=== PATIENT | male | born 1955 | race Caucasian/White ===

== ENCOUNTER 2019-12-05 11:43 | Inpatient (IN) | payer BC ==
[~2019-12-05] VITALS: Ht 167.6 cm; Wt 107.6 kg
[~2019-12-05 11:43] MED LIST: AGGRENOX 25 MG1 EACH PO; FISH OIL 1,001000 M2 PO; LANTUS100 UNIT/M SUBQ; NIACIN500 MG PO; NOVOLOG100 UNIT/1 SUBQ; SIMVASTATIN40 MG PO; TRILEPTAL150 MG PO
[2019-12-05 11:51] VITALS: BP 146/72
[2019-12-05] MEDS ORDERED: KLOR-CON 1010 MEQ PO (12:02)
[2019-12-05] MEDS ORDERED: SPIRONOLACTONE25 MG PO (12:02)
[2019-12-05] MEDS ORDERED: FARXIGA10 MG PO (12:03)
[2019-12-05] MEDS ORDERED: ELIQUIS5 MG PO (12:04)
[2019-12-05] MEDS ORDERED: METFORMIN HCL500 M3 PO (12:04)
[2019-12-05] MEDS ORDERED: CLOPIDOGREL75 MG PO (12:04)
[2019-12-05] MEDS ORDERED: FENOFIBRATE150 MG PO (12:05)
[2019-12-05] MEDS ORDERED: TOPROL XL25 MG PO (12:05)
[2019-12-05] MEDS ORDERED: PROTONIX40 M1 PO (12:06)
[2019-12-05] MEDS ORDERED: FUROSEMIDE 20 M20 M1 PO (12:06)
[2019-12-05] MEDS ORDERED: OZEMPIC0.25 MG/0. SUBQ (12:07)
[2019-12-05] MEDS ORDERED: NIACIN 500 MG500 M1 PO (12:07)
[2019-12-05] MEDS ORDERED: FISH OIL 1,001000 M3 PO (12:08)
[2019-12-05] MEDS ORDERED: NITROSTAT0.4 M1 SUBLING (12:09)
[2019-12-05] MEDS ORDERED: VITAMIN D34000 UNIT PO (12:09)
[2019-12-05 12:27] LABS: ABSOLUTE BASOPHILS 0.2 thou/uL (0.0-0.2); ABSOLUTE EOSINOPHILS 0.2 thou/uL (0.0-0.7); ABSOLUTE NEUTROPHILS 10.4 thou/uL (1.6-8.1); BASOPHILS 1.4 %; EOSINOPHILS 1.5 %; HEMATOCRIT 51.1 % (42.0-52.0); LYMPHOCYTES 20.4 %; MCH 29.8 pg (26.0-34.0); MCHC 33.2 g/dL (28.0-37.0); MCV 89.8 fL (80.0-100.0); MONOCYTES 6.8 %; MPV 9.6 fl. (7.2-11.1); NUCLEATED RBCS 0 /100WBC; PLATELET COUNT* 287 thou/uL (150-400); POLYS 69.9 %; RBC 5.69 mil/uL (4.50-6.00); RDW-CV 13.9 % (10.5-14.5); WBC 14.9 thou/uL (4.0-11.0)
[2019-12-05 12:34] LABS: CALCIUM 9.2 mg/dL (8.5-10.1); CREATININE 1.2 mg/dL (0.6-1.3); POTASSIUM 4.6 mmol/L (3.5-5.1)
[2019-12-05 12:38] LABS: APTT 26.7 Seconds (25.0-31.3); INR 1.1; PROTIME 10.9 Seconds (9.20-11.50)
[2019-12-05 12:45] LABS: ALBUMIN 3.7 g/dL (3.4-5.0); TOTAL BILIRUBIN 0.2 mg/dL (<0.1-1.0); TOTAL PROTEIN 7.9 g/dL (6.4-8.2)
[2019-12-05 13:38] LABS: URINE BILIRUBIN NEGATIVE (Negative); URINE BLOOD NEGATIVE (Negative); URINE CLARITY CLEAR; URINE COLOR YELLOW; URINE GLUCOSE-RANDOM 3+ (Negative); URINE KETONES NEGATIVE (Negative); URINE LEUKOCYTES-REFLEX NEGATIVE (Negative); URINE NITRITE-REFLEX NEGATIVE (Negative); URINE PROTEIN NEGATIVE (Negative); URINE UROBILINOGEN 0.2 E.U./dl (0.2-1.0)
--- NOTE | 2019-12-05 16:56 | EKG ---
[place] [address] ELECTROCARDIOGRAM REPORT Name: AMADO DERAS Room: [place] [address] 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: TS : 1955 Requested By: Edelmira Fong Order Number: [id number] MD: Ba Araya Measurements Intervals [place] Rate: 88 P: 39 CT: 188 QRS: 185 QRSD: 95 T: 54 QT: 345 QTc: 418 Interpretive Statements Sinus rhythm Anterolateral infarct, old Compared to ECG 05/08/2015 12:58:35 Sinus tachycardia no longer present First degree AV block no longer present Myocardial infarct finding still present Electronically Signed On 12-05-2019 16:55:33 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
[2019-12-05 17:57] VITALS: BP 106/59
[2019-12-05 18:15] VITALS: BP 126/65
--- NOTE | 2019-12-05 18:33 | NUR ---
RECEIEVIED REPORT FROM MATHEUS RN IN ER OF EXPECTED ADMISSION AT 1735- DX: INTRACTABLE HEADACHE WITH SLURRED SPEECH/APHASIA- PT ARRIVED TO ROOM 224 VAII CART, SUPERVISION WITH TRANSFER TO BED- PLANT BREEDER IN PLACED ORDERED, TRACING SR WITH 1ST DEGREE- PT REPORTS TO HAVE IMPLANTED HEART MONITOR R/T BOUTS OF A-FIB IN PLACE- PT A&O X4- CONTINENT OF B/B- UP AD-LOW IN ROOM, STEADY GAIT NOTED- VS 98.6 18 126/65 78 95% ON RA- LCTA, RESP EVEN AND UN-LABORED- ABD SOFT/ROUND/NON-TENDER, BS X4 QUADS- PT REPORTS TO HAVE HAD BM THIS AM- TRACE EDEMA NOTED TO BLE- IV NOTED TO LEFT AC INTACT AND SL- PT REPORTS TO HAVE KANDICE HEARING AIDES, BUT LEFT AT HOME- GLASSES IN PLACE AT TIME OF ADMISSION- BS NOTED TO BE 116 PER PT MONITORING- PT REPORTS TO HAVE OWN INSULIN PUMP AND WILL DOSE SELF ACORDING TO WHAT HE EATS- PT RATES HEADACHE 2/10 AT TIME OF ADMISSION, REPORTS TO INCREASE WITH COUGH AND SNEEZE- CALL LIGHT AND PERSONAL BELONGINGS WITH IN REACH- PT MAKES NEEDS KNOWN- ALL NEEDS MET AT THIS TIME-WCTM
[2019-12-05 20:07] VITALS: BP 101/54
[2019-12-05 23:09] LABS: GLYCOHEMOGLOBIN (HGB A1C) 8.2 % (4.8-5.6)
[2019-12-06 00:38] VITALS: BP 118/67
[2019-12-06 04:00] VITALS: BP 129/69
--- NOTE | 2019-12-06 05:32 | NUR ---
PT IS ABLE TO COMMUNICATE HIS NEEDS TO STAFF EFFECTIVELY. HE HAS DENIED THE NEED FOR PAIN MEDICATION UP TO THIS TIME. PT IS TENTATIVELY SCHEDULED TO HAVE A TT ECHO LATER TODAY. NEUROLOGY IS CONSULTED.
[2019-12-06 05:45] LABS: CHOLESTEROL 125 mg/dL (<200); HDL CHOLESTEROL 37 mg/dL (>40); LDL CHOLESTEROL 65 mg/dL (<100); TC:HDL 3.4 Ratio (Not establshd); TRIGLYCERIDE 116 mg/dL (<150); VLDL 23 mg/dL (<40)
[2019-12-06 05:50] LABS: SERUM ASSESSMENT Clear
[2019-12-06 07:52] VITALS: BP 124/66
--- NOTE | 2019-12-06 08:37 | NUR ---
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 ORDERED, TRACING SR/1ST DEGREE- UPON ASSESSMENT PT NOTED TO BE PACING FLOOR IN ROOM- PT A&O X4, ANXIOUS THIS AM AND REQUESTING TO GO HOME- PT EXPRESSESS THAT HE DOES NOT WISH TO HAVE ANY FURTHER TESTING DONE AND WOULD LIKE TO GO HOME- CONT OF B/B- UP AD-LOW, STEADY GAIT NOTED- LCTA, RESP EVEN AND UN-LABORED- VSS, O2 SAT 96% ON RA- ABD SOFT/ROUND/NON-TENDER, BS X4 QUADS- LAST BM REPORTED 12/05/19- IV NOTED TO LEFT AC INTACT AND SL- BS MONITORED PER PT INSULIN PUMP WITH ADMINISTRATION OF INSULIN PER PUMP- PT DENIES ANY C/O PAIN/DISCOMFORT AT THIS TIME- CALL LIGHT AND PERSONAL BELONGINGS WITH IN REACH- PT MAKES NEEDS KNOWN- ALL NEEDS MET AT THIS TIME-WCTM
[2019-12-06 09:07] VITALS: BP 124/66
--- NOTE | 2019-12-06 14:15 | NUR ---
PT. DISCHARGED TO HOME AMA PRIOR TO O.T. EVAL.
== END 2019-12-06 10:02 | disposition left against medical advice (07) | DRG 69 ==
LOC: M.ERS 11:43 → M.TBA-ER 14:20 → M.2W 18:08
PROVIDERS: Personal Emergency Response Attendant; ADMIT Internal Medicine
DX: G45.9 Transient cerebral ischemic attack, unspecified (principal); R47.01 Aphasia; D68.59 Other primary thrombophilia; E10.9 Type 1 diabetes mellitus without complications; E78.00 Pure hypercholesterolemia, unspecified; I10 Essential (primary) hypertension; Z53.29 Procedure and treatment not carried out because of patient's decision for other reasons; I25.10 Atherosclerotic heart disease of native coronary artery without angina pectoris; I50.9 Heart failure, unspecified; Z95.5 Presence of coronary angioplasty implant and graft; Z85.528 Personal history of other malignant neoplasm of kidney; Z79.899 Other long term (current) drug therapy